=== PATIENT | female | born 2000 | race Two or more races ===

== ENCOUNTER 2020-10-26 05:04 | Emergency (ER) | payer OTHER ==
[~2020-10-26] VITALS: Ht 149.9 cm; Wt 56.7 kg
== END 2020-10-26 05:46 | disposition home or self-care (01) ==
LOC: ER 05:04
DX: T19.2XXA Foreign body in vulva and vagina, initial encounter (principal); W45.8XXA Other foreign body or object entering through skin, initial encounter; Y93.89 Activity, other specified; Y92.098 Other place in other non-institutional residence as the place of occurrence of the external cause; Y99.8 Other external cause status